=== PATIENT | female | born 1945 | race Caucasian/White ===

== ENCOUNTER → 2019-09-11 | Outpatient (CLI) | payer MEDICARE ==
[2019-09-11 18:17] LABS: Urine Creatinine 104.7 mg/dL
[2019-09-11 18:56] LABS: African American GFR (CKD) 39.1 (60.0-200.0); Albumin 4.3 g/dL (3.80-4.90); Albumin/Globulin Ratio 1.72 (1.60-3.17); Anion Gap 9.5 mmol/L (4.00-12.00); BUN/Creat Ratio 21.33 Ratio (12.00-20.00); Calcium 10.1 mg/dL (8.7-10.3); Carbon Dioxide 31.5 mmol/L (21.6-31.8); Chol/HDL Ratio 3.5; Globulin 2.5 g/dL (1.6-3.3); LDL Cholesterol,Calculated 76.8 mg/dL (0.0-131.0); Non-African American GFR(CKD) 33.7 (60.0-200.0); Total Bilirubin 0.3 mg/dL (0.2-1.2); Total Protein 6.8 g/dL (6.2-8.2); VLDL Calculation 38.2 mg/dL (5.00-40.00)
[2019-09-11 20:59] LABS: Hemoglobin A1C 7.2 % (4.0-6.0)
== END | disposition home or self-care (01) ==
LOC: LABWHC1 11:35
PROVIDERS: ATTEND Internal Medicine Endocrinology, Diabetes & Metabolism
DX: E11.65 Type 2 diabetes mellitus with hyperglycemia (principal)
CPT/HCPCS: 36415; 80053; 80061; 82043; 82570; 83036; 84443